=== PATIENT | male | born 1965 | race Caucasian/White ===

== ENCOUNTER 2019-01-16 09:47 | Emergency (ER) | payer OTHER ==
[~2019-01-16] VITALS: Ht 185.4 cm; Wt 99.7 kg
[~2019-01-16 09:47] MED LIST: CIPR500T3 PO; DOCU100C33 PO; LEVO500T47 PO; LEVO750T6 PO; METR-90 PO; METR500T PO; OXYC-302 PO; TRAM-47 PO; [UNRECOGNIZED DRUG - OTHER] PO
[2019-01-16] MEDS ORDERED: SODIUM CHLORIDE FLUSH 10ML SYR IVF ONE (10:30)
--- NOTE | 2019-01-16 10:52 | NUR ---
PT PRESENTS TO ED C/O CHEST PAIN X 2 DAYS. STATES IT STARTED RANDOMLY, LEFT SIDE CHEST AND BACK WITH SOB. PT STATES CHEST PAIN IS INTERMITTENT. AT WORSE 7/10 AND DECREASES TO 2/10. 2/10 NOW IN ED. CP MONITORS IN PLACE. CALL LIGHT IN REACH. FAMILY AT BEDSIDE. AWAITING LAB AND RAD RESULTS.
[2019-01-16 10:56] LABS: BASOPHILS # (AUTO) 0.09 x10^3/uL (0-0.1); BASOPHILS % (AUTO) 1 % (0-1); EOSINOPHILS % (AUTO) 3 % (1-7); LYMPHOCYTES # (AUTO) 1.95 x10^3/uL (1-3.4); LYMPHOCYTES % (AUTO) 31 % (22-44); MD NO; MEAN CORPUSCULAR HEMOGLOBIN 28.8 pg (27.5-34.5); MEAN CORPUSCULAR HGB CONC 32.8 g/dL (33.2-36.2); MEAN CORPUSCULAR VOLUME 87.7 fL (81-97); MEAN PLATELET VOLUME 7.3 fL (7.4-10.4); MONOCYTES # (AUTO) 0.45 x10^3/uL (0.2-0.8); MONOCYTES % (AUTO) 7 % (2-9); NEUTROPHILS # (AUTO) 3.53 x10^3/uL (1.8-6.8); NEUTROPHILS % (AUTO) 57 % (42-75); PLATELET COUNT 320 x10^3/uL (130-400); RED BLOOD COUNT 4.95 x10^6/uL (4.38-5.82); RED CELL DISTRIBUTION WIDTH 14.6 % (9.4-14.8)
[2019-01-16 11:04] LABS: INTERNATIONAL NORMALIZED RATIO 1.06 (0.93-1.1); PROTHROMBIN TIME 11.1 Seconds (9.6-11.5)
[2019-01-16 11:06] LABS: ALANINE AMINOTRANSFERASE 20 U/L (12-78); ALBUMIN 3.6 g/dL (3.4-5.0); ANION GAP 7 mmol/L (5-15); CALCIUM 8.4 mg/dL (8.5-10.1); CHLORIDE 112 mmol/L (98-107); CREATININE 1.14 mg/dL (0.7-1.3)
[2019-01-16 11:10] LABS: ALKALINE PHOSPHATASE 78 U/L (45-117); BILIRUBIN,TOTAL 0.4 mg/dL (0.2-1.0); TOTAL PROTEIN 6.9 g/dL (6.4-8.2); TROPONIN I < 0.015 ng/mL (0.000-0.045)
--- NOTE | 2019-01-16 11:25 | NUR ---
PT AMBULATORY TO BATHROOM WITH STEADY GAIT IN NAD.
[2019-01-16 11:59] VITALS: BP 142/82
--- NOTE | 2019-01-16 12:01 | NUR ---
Patient/Caregiver given discharge instructions and they have confirmed that they understand the instructions. Patient ambulatory with steady gait. Pt left with all personal belongings.
== END 2019-01-16 12:03 | disposition home or self-care (01) ==
LOC: ED 11:30
DX: R07.89 Other chest pain (principal); Z88.0 Allergy status to penicillin
CPT/HCPCS: 36415; 71045; 80053; 83690; 84484; 85025; 85610; 85730; 93005; 99284

== ENCOUNTER 2021-01-29 20:14 | Emergency (ER) | payer OTHER ==
[~2021-01-29] VITALS: Ht 185.4 cm; Wt 94.9 kg
[~2021-01-29 20:14] MED LIST changes: -CIPR500T3 PO; +CIPR500T4 PO; -OXYC-302 PO; +OXYC1TAB14 PO
[2021-01-29] MEDS ORDERED: LIDOCAINE 2%,20 ML JEL.PF.APP MM ONE (20:57)
--- NOTE | 2021-01-29 21:16 | NUR ---
CC OF "I HAVE URINARY RETENTION AND CONSTIPATION". PT STATES HE DID HAVE SMALL BM TODAY BUT "I FEEL PAIN IN MY KIDNEYS AND PRESSURE IN MY LOWER ABD AND I KNOW IM CONSTIPATED". BLADDER SCAN SHOWS [address] PABLO AWARE, ORDERS TO DC [facility] [employer].
[2021-01-29] MEDS ORDERED: SODIUM CHLORIDE 0.9% 1,000ML IVBOLUS ONE (21:30)
[2021-01-29] MEDS ORDERED: SODIUM CHLORIDE FLUSH 10ML SYR IVF ONE (21:30)
--- NOTE | 2021-01-29 21:35 | NUR ---
Break RN note: Pt ambulatory to bathroom with steady gait to attempt to have BM.
[2021-01-29 21:44] LABS: ALBUMIN 4.3 g/dL (3.4-5.0); ANION GAP 8 mmol/L (5-15); CALCIUM 9.1 mg/dL (8.5-10.1); CHLORIDE 107 mmol/L (98-107); CREATININE 1.91 mg/dL (0.7-1.3)
--- NOTE | 2021-01-29 22:11 | NUR ---
PT UP TO RESTROOM FOR ANOTHER BM.
--- NOTE | 2021-01-29 22:14 | NUR ---
PT ABLE TO URINATE 200 MLS.
[2021-01-29 23:00] VITALS: BP 145/91
--- NOTE | 2021-01-29 23:00 | NUR ---
PVR 0 MLS.
[2021-01-29 23:56] LABS: MICROSCOPIC AUTO
== END 2021-01-30 00:26 | disposition home or self-care (01) ==
LOC: ED 23:06
DX: N28.9 Disorder of kidney and ureter, unspecified (principal); R33.9 Retention of urine, unspecified; R11.2 Nausea with vomiting, unspecified
CPT/HCPCS: 36415; 74021; 80048; 81001; 82040; 96360; 99284; J7030